=== PATIENT | male | born 1985 | race Caucasian/White ===

== ENCOUNTER 2018-10-05 17:34 | Emergency (ER) | payer OTHER | END 2018-10-06 01:20 | disposition home or self-care (01) | LOC: JER 10-06 01:20 ==

== ENCOUNTER 2021-10-18 23:27 | Emergency (ER) | payer OTHER ==
[2021-10-19] MEDS ORDERED: ONDANSETRON 4 MG/2 ML VIAL IVPUSH ONE (00:44)
[2021-10-19] MEDS ORDERED: SODIUM CHLORIDE 0.9% 500 ML INFUS.BAG IV ONE ×2 (00:44→02:32)
[2021-10-19] MEDS ORDERED: MAG HYDROX/AL HYDROX/SIMETH 30 ML UNIT-DOSE CUP PO ONE (00:44)
[2021-10-19] MEDS ORDERED: FAMOTIDINE 20 MG/50 ML IVPB 20 MG/50 ML MG IVPB ONE (00:44)
[2021-10-19] MEDS ORDERED: ONDANSETRON 4 MG/2 ML VIAL ONE (01:39)
[2021-10-19] MEDS ORDERED: FAMOTIDINE 10 MG/ML VIAL IVPB ONE (01:39)
[2021-10-19] MEDS ORDERED: MAG HYDROX/AL HYDROX/SIMETH 30 ML UNIT-DOSE CUP ONE (01:39)
[2021-10-19 02:04] LABS: BASO % 0.3 % (0-2.0); EOS % 0.2 % (0-4.5); HEMATOCRIT 39.2 % (35.4-49); HEMOGLOBIN 13.3 GM/dL (11.7-16.9); LYMPH % 8.4 % (8-40); MCH 31.8 pg (25.7-33.7); MCHC 33.8 g/dl (32.0-35.9); MEAN CELL VOLUME 94.1 fl (80-96); MEAN PLT VOLUME 7.9 fl (7.5-11.1); MONO % 3.3 % (3.8-10.2); NEUT % 87.8 % (42.8-82.8); PLATELET COUNT 241 10^3/uL (134-434); RBC 4.17 M/mm3 (4.00-5.60); RDW 13.2 % (11.9-15.9); WHITE BLOOD COUNT 13.3 K/mm3 (4.0-10.0)
[2021-10-19 02:23] LABS: CALCIUM 9.1 mg/dL (8.5-10.1)
[2021-10-19 02:24] LABS: ALBUMIN 3.9 g/dl (3.4-5.0); BLOOD UREA NITROGEN 10.1 mg/dL (7-18)
[2021-10-19 02:27] LABS: CREATININE 0.8 mg/dL (0.55-1.3)
[2021-10-19 02:28] LABS: BILIRUBIN,TOTAL 0.6 mg/dL (0.2-1); TOT PROT 7.7 g/dl (6.4-8.2)
[2021-10-19] MEDS ORDERED: ACETAMINOPHEN 1000 MG/100 ML BAG IVPB ONE (02:32)
[2021-10-19] MEDS ORDERED: METOCLOPRAMIDE HCL INJECTION 10 MG/2 ML VIAL IVPB ONE (02:32)
[2021-10-19 02:36] VITALS: BMI 24.4
[2021-10-19] MEDS ORDERED: ACETAMINOPHEN INJECTION 100 ML IVPB ONE (02:39)
[2021-10-19] MEDS ORDERED: METOCLOPRAMIDE HCL INJECTION 10 MG/2 ML VIAL ONE (02:39)
[2021-10-19] MEDS ORDERED: HALOPERIDOL LACTATE 5 MG/ML IM ONE (05:13)
[2021-10-19] MEDS ORDERED: HALOPERIDOL LACTATE 5 MG/ML ONE (05:21)
[2021-10-19] MEDS ORDERED: ONDANSETRON 4 MG/2 ML VIAL IVPUSH PRN (08:00)
[2021-10-19] MEDS ORDERED: SODIUM CHLORIDE 1,000 ML IV SCH (08:00)
[2021-10-19 08:40] VITALS: RESP 16
[2021-10-19] MEDS ORDERED: ENOXAPARIN NA (PORCINE) 40 MG/0.4 ML DISP.SYRIN SQ SCH (10:00)
[2021-10-19 10:27] VITALS: BP 112/47; PULSE 76; TEMP 98
== END 2021-10-19 10:40 | disposition home or self-care (01) ==
LOC: JER 23:27
PROC: 3E033GC Introduction of Other Therapeutic Substance into Peripheral Vein, Percutaneous Approach (ICD-10-PCS; principal; 2021-10-18)
PROC: 3E023GC Introduction of Other Therapeutic Substance into Muscle, Percutaneous Approach (ICD-10-PCS; principal; 2021-10-18)
DX: R10.84 Generalized abdominal pain (principal); R11.2 Nausea with vomiting, unspecified
CPT/HCPCS: 36415; 71045-TC-FY; 80053; 83690; 85025; 93005; 93010; 99285-25; C9803-CS; U0003; U0005

== ENCOUNTER 2023-11-04 20:44 | Emergency (ER) | payer OTHER ==
[2023-11-04 20:54] VITALS: BP 112/69; PULSE 82; RESP 18; TEMP 98; BMI 26.9
[2023-11-04] MEDS ORDERED: LIDOCAINE 4% PATCH TP ONE ×2 (22:14→22:33)
[2023-11-04] MEDS ORDERED: ACETAMINOPHEN 325 MG TABLET (FP) ONE (22:14)
[2023-11-04] MEDS: ACETAMINOPHEN 325 MG TABLET (FP) PO ONE (22:21)
[2023-11-04] MEDS: LIDOCAINE PATCH REMOVAL MC SCH ×2 (22:21→23:10)
[2023-11-04] MEDS: LIDOCAINE 4% PATCH TP ONE ×2 (22:29→22:36)
== END 2023-11-05 00:42 | disposition home or self-care (01) ==
LOC: JER 20:44
DX: R07.89 Other chest pain (principal); M54.6 Pain in thoracic spine; M54.50 Low back pain, unspecified; M54.2 Cervicalgia; V43.52XA Car driver injured in collision with other type car in traffic accident, initial encounter; Y92.410 Unspecified street and highway as the place of occurrence of the external cause
CPT/HCPCS: 71046-TC-FY; 99283-25